=== PATIENT | male | born 1995 | race Caucasian/White ===

== ENCOUNTER 2018-09-12 08:54 | Emergency (ER) | payer OTHER ==
[~2018-09-12] VITALS: Ht 177.8 cm; Wt 95.3 kg
[2018-09-12] MEDS ORDERED: NS IV 1000 ML 1,000 ML IV ONE (09:13)
[2018-09-12] MEDS ORDERED: ONDANSETRON 4 MG/2 ML (SDV) Z0FRAN IVP ONE (09:15)
[2018-09-12] MEDS ORDERED: KETOROLAC 30 MG/ML VIAL IVP ONE (09:15)
[2018-09-12 09:42] LABS: BASOPHILS % (AUTO) 0 % (0-10); EOSINOPHILS # (AUTO) 0.1 10^3/uL (0.0-0.3); EOSINOPHILS % (AUTO) 1 % (0-10); HEMATOCRIT 45 % (40-54); HEMOGLOBIN 15.6 G/DL (13.3-17.7); LYMPHOCYTES # (AUTO) 2.2 X 10^3 (1.0-4.0); LYMPHOCYTES % (AUTO) 36 % (12-44); MEAN CORPUSCULAR HEMOGLOBIN 29 PG (25-34); MEAN CORPUSCULAR HGB CONC 35 G/DL (32-36); MEAN CORPUSCULAR VOLUME 82 FL (80-99); MEAN PLATELET VOLUME 9.4 FL (7.4-10.4); MONOCYTES # (AUTO) 0.6 X 10^3 (0.0-1.0); MONOCYTES % (AUTO) 9 % (0-12); NEUTROPHILS # (AUTO) 3.3 X 10^3 (1.8-7.8); NEUTROPHILS % (AUTO) 54 % (42-75); PLATELET COUNT 288 10^3/uL (130-400); RED BLOOD COUNT 5.47 10^6/uL (4.35-5.85); RED CELL DISTRIBUTION WIDTH 13.4 % (10.0-14.5); WHITE BLOOD COUNT 6.1 10^3/uL (4.3-11.0)
--- OUTSIDE RECORDS SUMMARY | 2018-09-12 09:44 | XMS REPORT | Clinical Summary ---
Author Author Admin, [facility] Organization [employer] Address Unknown Phone Unavailable Allergies, Adverse Reactions, Alerts Allergy Name Reaction Description Start Date Severity Status Provider No Known Allergies Milad Butler MA Conditions or Problems Problem Name Problem Code Onset Date Status Entry Date Provider Comment Standard Description Annotate HEALTH EXAMINATION OF DEFINED SUBPOPULATION V70.5 Active Ibis Zimmerman Health examination of defined subpopulations Pre employment physical examination V70.0 Active Lilly Capone APRN Routine general medical examination at a health care facility Medication List Medication Instructions Start Date Stop Date Generic Name NDC Status Provider Patient Instruction No Drug Therapy Prescribed - none known did ask Milad Butler MA Vital Signs Date Name Value Unit Range Description blood pressure, diastolic, second observation 88 mm[Hg] BP pereira blood pressure, diastolic 93 mm[Hg] BP pereira blood pressure, systolic, second observation 140 mm[Hg] BP sys blood pressure, systolic 145 mm[Hg] BP sys height E&M 60 [in_us] Bdy height pulse rate E&M 77 /min Heart rate temperature E&M 98.9 [degF] Body temperature weight E&M 217 [lb_av] Weight Measured Diagnostic Results Date Name Value Unit Range Description Clinical Summary: Nurse Note - Chemistry RBC, urine, dipstick negative protein, total urine random trace mg/dL Clinical Summary: Nurse Note - Urinalysis specific gravity, urine 1.010 glucose, urine, semiquantitative negative Encounters Code Encounter Date Provider Facility CPT-41509 Employment/ICC Exam 14:50:45 CDT Lilly Capone APRN [facility] Procedures Code Procedure Name Date Entry Date Standard Description CPT-86305 Spec Collection and Handling Fee 13:48:26 CDT
--- OUTSIDE RECORDS SUMMARY | 2018-09-12 09:44 | XMS REPORT | Clinical Summary ---
Author Author Admin, [facility] Organization [employer] Address Unknown Phone Unavailable Allergies, Adverse Reactions, [...] negative Encounters Code Encounter Date Provider Facility CPT-80963 Employment/ICC Exam 14:50:45 CDT Lilly Capone APRN [employer] [facility] Procedures Code Procedure Name Date Entry Date Standard Description CPT-78143 Spec Collection and Handling Fee 13:48:26 CDT
--- OUTSIDE RECORDS SUMMARY | 2018-09-12 09:44 | XMS REPORT | Clinical Summary ---
Author Author Admin, [facility] Organization [email or web address] Address Unknown Phone Unavailable Allergies, Adverse Reactions, [...] negative Encounters Code Encounter Date Provider Facility CPT-14867 Employment/ICC Exam 14:50:45 CDT Lilly Capone APRN [facility] Procedures Code Procedure Name Date Entry Date Standard Description CPT-22651 Spec Collection and Handling Fee 13:48:26 CDT
--- OUTSIDE RECORDS SUMMARY | 2018-09-12 09:44 | XMS REPORT | Clinical Summary ---
Author Author Admin, [facility] Organization [facility] Address Unknown Phone Unavailable Allergies, Adverse Reactions, Alerts Allergy Name Reaction Description Start Date Severity Status Provider Allergies Unknown Conditions or Problems Problem Name Problem Code Onset Date Status Entry Date Provider Comment Standard Description Annotate HEALTH EXAMINATION OF DEFINED SUBPOPULATION V70.5 Active Ibis Zimmerman Health examination of defined subpopulations Medication List Medication Instructions Start Date Stop Date Generic Name NDC Status Provider Patient Instruction Drug Treatment Unknown - unknown Diagnostic Results Date Name Value Unit Range Description Clinical Summary: Nurse Note - Chemistry RBC, urine, dipstick negative protein, total urine random trace mg/dL Clinical Summary: Nurse Note - Urinalysis specific gravity, urine 1.010 glucose, urine, semiquantitative negative Procedures Code Procedure Name Date Entry Date Standard Description CPT-55570 Spec Collection and Handling Fee 13:48:26 CDT
--- OUTSIDE RECORDS SUMMARY | 2018-09-12 09:44 | XMS REPORT | Clinical Summary ---
Author Author Admin, [facility] Organization [employer] Address Unknown Phone Unavailable Allergies, Adverse Reactions, [...] negative Encounters Code Encounter Date Provider Facility CPT-25092 Employment/ICC Exam 14:50:45 CDT Lilly Capone APRN [employer] [facility] Procedures Code Procedure Name Date Entry Date Standard Description CPT-47550 Spec Collection and Handling Fee 13:48:26 CDT
--- OUTSIDE RECORDS SUMMARY | 2018-09-12 09:44 | XMS REPORT | Clinical Summary ---
Author Author Admin, [facility] Organization [employer] Address Unknown Phone Unavailable Allergies, Adverse Reactions, [...] negative Encounters Code Encounter Date Provider Facility CPT-51804 Employment/ICC Exam 14:50:45 CDT Lilly Capone APRN [employer] [facility] Procedures Code Procedure Name Date Entry Date Standard Description CPT-94214 Spec Collection and Handling Fee 13:48:26 CDT
--- OUTSIDE RECORDS SUMMARY | 2018-09-12 09:44 | XMS REPORT | Clinical Summary ---
Author Author Admin, [facility] Organization [facility] Address Unknown Phone Unavailable Allergies, Adverse Reactions, [...] Procedure Name Date Entry Date Standard Description CPT-91221 Spec Collection and Handling Fee 13:48:26 CDT
--- OUTSIDE RECORDS SUMMARY | 2018-09-12 09:44 | XMS REPORT | Continuity of Care Document ---
Author Author [facility] Organization [facility] Address Unknown Phone Unavailable Allergies There is no data. Medications There is no data. Problems Date Dx Coded Attending Type Code Diagnosis Diagnosed By 03/28/2018 Z02.1 Pre employment physical examination 03/28/2018 Z00.8 HEALTH EXAMINATION OF DEFINED SUBPOPULATION Procedures There is no data. Results There is no data. Encounters ACCT No. Visit Date/Time Discharge Status Pt. Type Provider Facility Loc./Unit Complaint [id number] 03/28/2018 14:41:01 ACT Unknown [email or web address] 03/30/2018 08:06:53 ACT Document Registration
[2018-09-12 10:05] LABS: ALANINE AMINOTRANSFERASE 24 U/L (0-55); ALBUMIN 4.9 GM/DL (3.2-4.5); ALKALINE PHOSPHATASE 75 U/L (40-136); BILIRUBIN,TOTAL 0.9 MG/DL (0.1-1.0); BUN/CREATININE RATIO 13; CALCIUM 9.7 MG/DL (8.5-10.1); CARBON DIOXIDE 21 MMOL/L (21-32); CHLORIDE 102 MMOL/L (98-107); CREATININE SERUM 1.03 MG/DL (0.60-1.30); GFR ESTIMATED > 60; GLUCOSE 137 MG/DL (70-105); POTASSIUM 3.6 MMOL/L (3.6-5.0); SODIUM 137 MMOL/L (135-145); TOTAL PROTEIN 7.6 GM/DL (6.4-8.2)
[2018-09-12 10:05] LABS: BILIRUBIN,URINE NEGATIVE (NEGATIVE); CLARITY,URINE CLEAR; COLOR,URINE YELLOW; GLUCOSE, URINE (UA) NEGATIVE (NEGATIVE); KETONES,URINE NEGATIVE (NEGATIVE); LEUKOCYTE ESTERASE ,URINE 1+ (NEGATIVE); NITRITE,URINE NEGATIVE (NEGATIVE); PH,URINE 6.5 (5-9); PROTEIN,URINE 2+ (NEGATIVE); UROBILINOGEN,URINE 1 MG/DL (NORMAL)
[2018-09-12 10:15] LABS: BACTERIA,URINE TRACE /HPF; RBC,URINE >100 /HPF; WBC,URINE 0-2 /HPF
[2018-09-12 10:16] LABS: AMORPHOUS SEDIMENT,UR FEW AMOR URATES /LPF; CALCIUM OXALATE CRYSTALS,UR RARE /LPF
--- NOTE | 2018-09-12 10:54 | Diagnostic Imaging Report ---
PROCEDURE: CT urinary tract, rule out kidney stone. TECHNIQUE: Multiple contiguous axial images were obtained through the abdomen and pelvis without the use of intravenous contrast. INDICATION: Hematuria and right-sided pain. No prior studies are available for comparison. FINDINGS: The lung bases are clear. The liver and gallbladder are unremarkable. The pancreas and spleen are unremarkable. No adrenal mass is identified. No renal calculi are seen. The right kidney is slightly enlarged. There is mild right hydroureteronephrosis. The dilated right ureter is traced into the pelvis where there is a 3 mm calculus in the distal right ureter just proximal to the UVJ. The left ureter is unremarkable. The aorta is non-aneurysmal. The small and large bowel loops are normal caliber. There is no ascites. Bladder and prostate are unremarkable. IMPRESSION: 3 mm right UVJ calculus producing mild hydroureteronephrosis. No other significant abnormality is detected. Dictated by: Dictated on workstation # [id number]
--- NOTE | 2018-09-12 11:32 | ED GI ---
General Chief Complaint: Abdominal/GI Problems Stated Complaint: LOWER BACK PAIN Nursing Triage Note: PT WITH HX OF KIDNEY STONE ABOUIT 10 YRS AGO STATES HE FEELS LIKE HE IS HAVING ANOTHER, CC OF RT FLANK PAIN UNABLE TO URINATE. PAIN FOR A COUPLE WEEKS OFF AND ON. Sepsis Screen: No Definite Risk Source of Information: Patient Exam Limitations: No Limitations History of Present Illness Date Seen by Provider: Sep 12, 2018 Time Seen by Provider: 09:02 Initial Comments This 23-year-old young man presents to the emergency room with escalating right flank pain over the past few days. This morning his pain became intense rated as 10 out of 10 on arrival. It began to subside at the time of my evaluation area pain is been accompanied by vomiting. He denies any fever. He does have a history of ureteral stones about 10 years ago. Allergies and Home Medications Allergies Coded Allergies: No Known Drug Allergies (Unverified , 09/12/18) Home Medications Hydrocodone/Acetaminophen 1 Each Tablet, 1 EACH PO Q4-6HR PRN for PAIN-MODERATE Prescribed by: TRISTON WALKER on 09/12/18 1139 Ondansetron 4 Mg Tab.rapdis, 4 MG SL Q4H PRN for NAUSEA/VOMITING-1ST LINE Prescribed by: TRISTON WALKER on 09/12/18 1139 Patient Home Medication List Home Medication List Reviewed: Yes Review of Systems Review of Systems Constitutional: no symptoms reported EENTM: No Symptoms Reported Respiratory: No Symptoms Reported Cardiovascular: No Symptoms Reported Gastrointestinal: See HPI Genitourinary: See HPI Musculoskeletal: no symptoms reported Skin: no symptoms reported Psychiatric/Neurological: No Symptoms Reported Endocrine: No Symptoms Reported Hematologic/Lymphatic: No Symptoms Reported Past Wgwaktv-Ojghcw-Afzlcq Hx Past Med/Social Hx: Reviewed Nursing Past Med/Soc Hx Patient Social History Alcohol Use: Denies Use Recreational Drug Use: No Smoking Status: Never a Smoker Recent Foreign Travel: No Contact w/Someone Who Travel: No Recent Infectious Disease Expo: No Recent Hopitalizations: No Seasonal Allergies Seasonal Allergies: Yes Past Medical History Surgeries: No Respiratory: No Cardiac: No Neurological: No Genitourinary: Yes Kidney Stones Gastrointestinal: No Musculoskeletal: No Endocrine: No HEENT: No Cancer: No Psychosocial: No Integumentary: No Physical Exam Vital Signs Vital Signs - First Documented 09/12/18 09:02 Temp 97.2 Pulse 86 Resp 20 B/P (MAP) 150/101 (117) Pulse Ox 100 O2 Delivery Room Air Capillary Refill : Less Than 3 Seconds Height/Weight/BMI Height: 5'10.00" Weight: 210lbs. oz. 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, no motor/sensory deficits, alert, normal mood/affect, oriented x 3 Skin: normal color, warm/dry Progress/Results/Core Measures Results/Orders Lab Results Laboratory Tests Test 09/12/18 09:15 09/12/18 09:55 Range/Units White Blood Count 6.1 4.3-11.0 10^3/uL Red Blood Count 5.47 4.35-5.85 10^6/uL Hemoglobin 15.6 13.3-17.7 G/DL Hematocrit 45 40-54 % Mean Corpuscular Volume 82 80-99 FL Mean Corpuscular Hemoglobin 29 25-34 PG Mean Corpuscular Hemoglobin Concent 35 32-36 G/DL Red Cell Distribution Width 13.4 10.0-14.5 % Platelet Count 288 130-400 10^3/uL Mean Platelet Volume 9.4 7.4-10.4 FL Neutrophils (%) (Auto) 54 42-75 % Lymphocytes (%) (Auto) 36 12-44 % Monocytes (%) (Auto) 9 0-12 % Eosinophils (%) (Auto) 1 0-10 % Basophils (%) (Auto) 0 0-10 % Neutrophils # (Auto) 3.3 1.8-7.8 X 10^3 Lymphocytes # (Auto) 2.2 1.0-4.0 X 10^3 Monocytes # (Auto) 0.6 0.0-1.0 X 10^3 Eosinophils # (Auto) 0.1 0.0-0.3 10^3/uL Basophils # (Auto) 0.0 0.0-0.1 10^3/uL Sodium Level 137 135-145 MMOL/L Potassium Level 3.6 3.6-5.0 MMOL/L Chloride Level 102 98-107 MMOL/L Carbon Dioxide Level 21 21-32 MMOL/L Anion Gap 14 5-14 MMOL/L Blood Urea Nitrogen 13 7-18 MG/DL Creatinine 1.03 0.60-1.30 MG/DL Estimat Glomerular Filtration Rate > 60 BUN/Creatinine Ratio 13 Glucose Level 137 H 70-105 MG/DL Calcium Level 9.7 8.5-10.1 MG/DL Corrected Calcium 8.5-10.1 MG/DL Total Bilirubin 0.9 0.1-1.0 MG/DL Aspartate Amino Transf (AST/SGOT) 15 5-34 U/L Alanine Aminotransferase (ALT/SGPT) 24 0-55 U/L Alkaline Phosphatase 75 40-136 U/L Total Protein 7.6 6.4-8.2 GM/DL Albumin 4.9 H 3.2-4.5 GM/DL Urine Color YELLOW Urine Clarity CLEAR Urine pH 6.5 5-9 Urine Specific Wake 1.020 1.016-1.022 Urine Protein 2+ H NEGATIVE Urine Glucose (UA) NEGATIVE NEGATIVE Urine Ketones NEGATIVE NEGATIVE Urine Nitrite NEGATIVE NEGATIVE Urine Bilirubin NEGATIVE NEGATIVE Urine Urobilinogen 1 NORMAL MG/DL Urine Leukocyte Esterase 1+ H NEGATIVE Urine RBC (Auto) 5+ H NEGATIVE Urine RBC >100 H /HPF Urine WBC 0-2 /HPF Urine Crystals PRESENT H /LPF Urine Calcium Oxalate Crystals RARE H /LPF Urine Amorphous Sediment FEW DAYO URATES H /LPF Urine Bacteria TRACE /HPF Urine Casts NONE /LPF Urine Mucus SMALL H /LPF Urine Culture Indicated NO My Orders Orders - TRISTON ACEVES MD Ua Culture If Indicated (09/12/18 09:02) Cbc With Automated Diff (09/12/18 09:13) Comprehensive Metabolic Panel (09/12/18 09:13) Saline Lock/Iv-Start (09/12/18 09:13) Ns Iv 1000 Ml (Sodium Chloride 0.9%) (09/12/18 09:13) Ondansetron Injection (Zofran Injectio (09/12/18 09:15) Ketorolac Injection (Toradol Injection) (09/12/18 09:15) Ct Abd/Pelvis Wo(Kidney Stone) (09/12/18 10:32) Abdomen/Kub 1view (09/12/18 11:32) Medications Given in ED Current Medications Medications Dose Ordered Sig/Baltazar Route Start Time Stop Time Status Last Admin Dose Admin Ketorolac Tromethamine 15 mg ONCE ONCE IVP 09/12/18 09:15 09/12/18 09:16 DC 09/12/18 09:26 15 MG Ondansetron HCl 8 mg ONCE ONCE IVP 09/12/18 09:15 09/12/18 09:16 DC 09/12/18 09:26 8 MG Sodium Chloride 1,000 ml @ 0 mls/hr Q0M ONCE IV 09/12/18 09:13 09/12/18 09:15 DC 09/12/18 09:27 1,000 MLS/HR Vital Signs/I&O 09/12/18 09/12/18 09/12/18 09:02 09:26 11:50 Temp 97.2 97.2 97.2 Pulse 86 104 Resp 20 20 B/P (MAP) 150/101 (117) 143/90 (107) Pulse Ox 100 100 O2 Delivery Room Air Room Air Blood Pressure Mean: 117 Progress Progress Note : Progress Note Presentation was consistent with ureteral stone. Toradol and Zofran were administered for treatment of symptoms with good results. UA demonstrated hematuria. CT for stone search was obtained and revealed a small right UVJ stone. 1 L of IV normal saline was infused. Patient was dismissed in improved condition. Diagnostic Imaging Diagonstic Imaging: CT Plain Films/CT/US/NM/MRI: abdomen, pelvis Comments CT abdomen and pelvis viewed by me and report reviewed. See report below: NAME: MAURICIO ZARAGOZA [facility] REC#: [id number] PT STATUS: REG ER : 1995 PHYSICIAN: TRISTON ACEVES MD ADMIT DATE: 09/12/18/ER Draft Date of Exam:09/12/18 CT ABD/PELVIS WO(KIDNEY STONE) PROCEDURE: CT urinary tract, rule out kidney stone. TECHNIQUE: Multiple contiguous axial images were obtained through the abdomen and pelvis without the use of intravenous contrast. INDICATION: Hematuria and right-sided pain. No prior studies are available for comparison. FINDINGS: The lung bases are clear. The liver and gallbladder are unremarkable. The pancreas and spleen are unremarkable. No adrenal mass is identified. No renal calculi are seen. The right kidney is slightly enlarged. There is mild right hydroureteronephrosis. The dilated right ureter is traced into the pelvis where there is a 3 mm calculus in the distal right ureter just proximal to the UVJ. The left ureter is unremarkable. The aorta is non-aneurysmal. The small and large bowel loops are normal caliber. There is no ascites. Bladder and prostate are unremarkable. IMPRESSION: 3 mm right UVJ calculus producing mild hydroureteronephrosis. No other significant abnormality is detected. Dictated on workstation # [id number] Dict: 09/12/18 1049 Trans: 09/12/18 1053 [id number] Interpreted by: JAKE HOUSTON MD Departure Impression Primary Impression: Ureteral stone Additional Impressions: Nausea and vomiting Qualified Codes: R11.2 - Nausea with vomiting, unspecified Right flank pain Disposition: HOME, SELF-CARE Condition: Improved Departure-Patient Inst. Decision time for Depature: 11:15 Referrals: NO,LOCAL PHYSICIAN (PCP) Primary Care Physician THAD ROMERO MD Patient Instructions: Kidney Stones in Adults Add. Discharge Instructions: Drink plenty of clear liquids. Use Zofran (ondansetron) as prescribed for nausea and vomiting. You may take ibuprofen up to 600 mg every 6 hours as needed for pain. Add hydrocodone as prescribed for pain not controlled by ibuprofen. Strain your urine and bring any stones collected to your follow-up appointment. Follow-up with a primary care provider or Dr. Romero as soon as possible. Return to the emergency room if you have worsening symptoms, especially if you develop fever, uncontrolled pain, or other significant concerns. All discharge instructions reviewed with patient and/or family. Voiced understanding. Scripts Hydrocodone/Acetaminophen (Hydrocodone-Acetamin 5-325 mg) 1 Each Tablet 1 EACH PO Q4-6HR PRN for PAIN-MODERATE, #10 TAB Prov: TRISTON ACEVES MD 09/12/18 Ondansetron (Zofran Odt) 4 Mg Tab.rapdis 4 MG SL Q4H PRN for NAUSEA/VOMITING-1ST LINE, #10 TAB Prov: TRISTON ACEVES MD 09/12/18 TRISTON ACEVES MD Sep 12, 2018 11:32
[2018-09-12] MEDS ORDERED: ONDA4TAB8 SL (11:39)
[2018-09-12] MEDS ORDERED: HYDR-3812 PO (11:39)
[2018-09-12 11:50] VITALS: BP 143/90
--- NOTE | 2018-09-12 11:56 | Diagnostic Imaging Report ---
INDICATION: Nephrolithiasis KUB 1205 PM Bowel gas pattern is normal. There are no pathologic masses or calcifications. Osseous structures are normal. IMPRESSION: Negative abdomen Dictated by: Dictated on workstation # [id number]
== END 2018-09-12 11:50 | disposition home or self-care (01) ==
LOC: ER 08:56
DX: N13.2 Hydronephrosis with renal and ureteral calculous obstruction (principal); Z87.442 Personal history of urinary calculi
CPT/HCPCS: 36415; 74018; 74176; 80053; 81000; 85025; 96361; 96374; 96375